=== PATIENT | male | born 1950 | race Caucasian/White ===

== ENCOUNTER → 2016-10-30 | Outpatient (CLI) | payer OTHER | END | disposition home or self-care (01) | LOC: PTH.S 07:57 | DX: Z01.818 Encounter for other preprocedural examination (principal) ==

== ENCOUNTER 2016-11-05 09:04 | Day surgery (SDC) | payer OTHER ==
[~2016-11-05] VITALS: Ht 172.7 cm; Wt 79.9 kg
--- NOTE | 2016-11-24 08:53 | OR ---
ADMIT: 11/05/2016 RM/LOC: W.[address] [facility] MR#: [id number] [facility]#: [id number] [address] [address] SHIVANI ANDARDE [address] [place] [id number] Operative/Delivery Room Report SEX: M AGE: 66 : 1950 SURGERY DATE: 11/05/2016 SURGEON: Jhoan Funk MD [facility] MANAGER: Sergio Perales MD PREPROCEDURE DIAGNOSIS: Medically refractory gastroesophageal reflux disease. POSTPROCEDURE DIAGNOSIS: Medically refractory gastroesophageal reflux disease. PROCEDURE: Laparoscopic Ama fundoplication. INDICATIONS: The patient is a 66-year-old with medically refractory gastroesophageal reflux disease, who has elected for a Ama fundoplication. DESCRIPTION OF PROCEDURE: The patient was taken to the operative room. General endotracheal anesthesia was induced. The patient's abdomen was prepped and draped in normal sterile fashion. The case was begun by making a transverse, supraumbilical 5 mm skin incision using a #11 blade. A retractable 5-mm port was placed within the abdomen. The abdomen was insufflated with CO2 to an intra-abdominal pressure of 15 mmHg. A camera was placed showing no bowel or vascular injury. Two right subcostal 5 mm ports were placed under direct vision. Two left subcostal ports were placed, one was 11 and other was 5, under direct vision. A Alex arm was placed on the bed. The liver retractor was placed within the right lateral 5 mm port site. The left lobe of the liver was retracted anteriorly, and liver retractor was then attached our Alex arm. Dissection was then carried out using a Harmonic scalpel dissection dividing the gastrohepatic ligament, the phrenoesophageal membrane, and short gastric vessels. We the esophagus and upper stomach circumferentially well up within the mediastinum. Dividing this surrounding connective tissue, we identified clearly both the anterior and posterior vagus and kept it away from our area of dissection. We had a nice large retroesophageal window. Before doing our wrap, we did place two posteriorly located 0 Tycron Endo stitches to close down the hiatal defect and then, we placed our fundus through the retroesophageal window. He had a nice floppy fundus and we did a shoeshine maneuver and was able to complete a nice loose 360 degree floppy 3 cm Ama fundoplication incorporating each ADMIT: 11/05/2016 RM/LOC: W.[address] [facility] MR#: [id number] [address] [address] SHIVANI ANDRADE [address] [place] [address] Operative/Delivery Room Report SEX: M AGE: 66 : 1950 side of the gastric fundus to the anterior esophageal musculature, again avoiding our anterior vagus nerve. After completing the wrap, again, it was nice and floppy, there were no tension points along the wrap. There was no bleeding noted. The liver retractor was then removed. Pictures had been taken. A 0.5% Marcaine was injected subdermally and subfascially for postoperative analgesia. The left upper quadrant 11 mm fascial incision was closed with a [id number] 0 Polysorb suture passer. The air was desufflated. The port sites were removed. The skin sites were closed with interrupted 4-0 Vicryl subcuticular skin stitches. The wounds were cleaned and dried. Steri-Strips and Tegaderms were applied over the top. Needle, sponge, and instrument counts were correct at the end of the case. The patient was extubated and wheeled to recovery room in good condition. Jhoan Funk MD/ marlon JOB #: [id number] CC: Jhoan Funk, Attending Physician Gavin Whitfield, Family Physician
== END 2016-11-05 14:15 | disposition home or self-care (01) ==
LOC: WOR 09:04 → UNDOADMOB 09:04 → WOR 09:04 → SSS 09:04 → EDSTATUS 15:21
PROC: 0DV44ZZ Restriction of Esophagogastric Junction, Percutaneous Endoscopic Approach (ICD-10-PCS; principal; 2016-11-05)
DX: K21.9 Gastro-esophageal reflux disease without esophagitis (principal); Z98.890 Other specified postprocedural states